=== PATIENT | male | born 1945 | race Two or more races ===

== ENCOUNTER 2016-10-22 19:35 | Inpatient (IN) | payer MEDICARE, MEDICAID ==
[~2016-10-22] VITALS: Ht 182.9 cm; Wt 71.2 kg
--- NOTE | 2016-10-22 19:37 | NUR ---
70 YO MALE BB RA FROM [facility] FOR SOB. PT IS CONFUSED AT THIS TIME, SKIN WARM AND DRY. RR EVEN AND UNLABORED. PT SPO2 IS 94 ON ROOM AIR. PT GOWNED, PLACE DON STOGY MAKER. AWAITING ORDERS FROM PROVIDER Addendum: 10/22/16 at 2203 by STEF REPORT GIVEN TO ALESSANDRA NAQVI FOR DAGO
--- NOTE | 2016-10-22 19:58 | NUR ---
MANAGING BROKER AT BED SIDE FOR BLOOD DRAW
[2016-10-22] MEDS ORDERED: ACETAMINOPHEN 650 MG/SUPP.RECT RC ONE ×2 (20:00→20:25)
--- NOTE | 2016-10-22 20:00 | NUR ---
RT AT BED SIDE FOR ABG
--- NOTE | 2016-10-22 20:00 | NUR ---
RADIOLOGY TEAM AT BED SIDE FOR X RAY
[2016-10-22 20:05] LABS: BASOPHILS # (AUTO) 0.3 /CMM (0.0-0.2); BASOPHILS % (AUTO) 1.9 % (0.0-2.0); EOSINOPHILS % (AUTO) 0.1 % (0.0-6.0); HEMATOCRIT 30 % (39-51); LYMPHOCYTES # (AUTO) 1.4 /CMM (0.8-4.8); LYMPHOCYTES % (AUTO) 8.9 % (20.0-44.0); MEAN CORPUSCULAR HEMOGLOBIN 31 PG (26.0-33.0); MEAN CORPUSCULAR HGB CONC 33 g/dl (31.0-36.0); MEAN CORPUSCULAR VOLUME 94 fL (80-96); MONOCYTES # (AUTO) 1.4 /CMM (0.1-1.30); MONOCYTES % (AUTO) 8.8 % (2.0-12.0); NEUTROPHILS # (AUTO) 12.5 /CMM (1.8-8.9); NEUTROPHILS % (AUTO) 80.3 % (43.0-81.0); PLATELET COUNT (AUTO) 369 /CMM (150-450); RDW COEFFICIENT OF VARIATION 16.7 (11.5-15.0); WHITE BLOOD COUNT (AUTO) 15.6 K/uL (4.3-11.0)
[2016-10-22 20:12] LABS: ABG BASE EXCESS 0.4 mmol/L; ABG OXYGEN SATURATION 91.3 % (92.0-98.5); ABG PCO2 29.8 mmHg (35.0-45.0); ABG PH 7.506 (7.350-7.450); ABG PO2 64.9 mmHg (75.0-100.0); AaDO2 49.1 mmHg; COHb 1.7 % (0.5-1.5); MetHb 1.1 % (0.0-1.5); O2Hb 88.7 % (94.0-97.0); SITE, ABG Left Radial; VENT MODE, BG ROOM AIR
[2016-10-22 20:16] LABS: CALCIUM, SERUM 8.6 mg/dL (8.5-10.1); CARBON DIOXIDE 27 mmol/L (21-32); CHLORIDE 102 mmol/L (98-107); CREATININE 1.5 mg/dL (0.6-1.3); GLUCOSE 124 mg/dL (74-106); POTASSIUM 4.4 mmol/L (3.5-5.1); PROTHROMBIN TIME 10.4 SECS (9.5-12.7); SODIUM SERUM 136 mmol/L (136-145); UREA NITROGEN, BLOOD 26 mg/dL (7-18)
[2016-10-22 20:26] LABS: ALANINE AMINOTRANSFERASE 11 U/L (12-78); ALBUMIN 3.5 g/dL (3.4-5.0); ALKALINE PHOSPHATASE 68 U/L (46-116); ASPARTATE AMINOTRANSFERASE 13 U/L (15-37); BILIRUBIN,DIRECT 0.1 mg/dL (0.0-0.2); BILIRUBIN,TOTAL 0.6 mg/dL (0.2-1.0); TOTAL PROTEIN, SERUM 7.7 g/dL (6.4-8.2)
[2016-10-22 20:28] LABS: TROPONIN I < 0.017 ng/mL (0.00-0.056)
[2016-10-22 20:41] LABS: BAND % (MANUAL) 12 % (0.0-5.0); LYMPHOCYTES % (MANUAL) 13 % (16-48); MONOCYTES % (MANUAL) 10 % (0-11.0); NEUTROPHILS % (MANUAL) 65 (42-76)
[2016-10-22] MEDS ORDERED: IV NS 0.9% 1,000 ML ONE (20:50)
[2016-10-22] MEDS ORDERED: IV SET PRIMARY PUMP SET 1 EA INFUS.SET MC ONE ×2 (20:50→20:59)
--- NOTE | 2016-10-22 20:53 | NUR ---
CALLED DR. MTZ. LEFT MESSAGE ON VOICEMAIL
[2016-10-22] MEDS ORDERED: VANCOMYCIN 1 GM in IV D5W 250 ML IV ONE (21:00)
[2016-10-22] MEDS ORDERED: IV NS 0.9% 1,000 ML BAG IV ONE (21:00)
[2016-10-22] MEDS ORDERED: CEFEPIME 1 GM in IV D5W 50 ML IV ONE (21:00)
--- NOTE | 2016-10-22 21:01 | NUR ---
ATTEMPTED TO DO PERKINS CATH ON PT, UNABLE TO CATH DUE TO RESISTANCE. NOTIFIED
[2016-10-22] MEDS ORDERED: LORA1TAB82 PO (21:16)
[2016-10-22] MEDS ORDERED: SACC250C6 PO (21:16)
[2016-10-22] MEDS ORDERED: DIVA125C PO ×2 (21:16)
[2016-10-22] MEDS ORDERED: RISP1TAB7 PO (21:16)
[2016-10-22] MEDS ORDERED: MULT-213 PO (21:16)
[2016-10-22] MEDS ORDERED: OMEP20CA10 PO (21:16)
[2016-10-22] MEDS ORDERED: METO25TA6 PO (21:16)
[2016-10-22] MEDS ORDERED: GABA-534 PO (21:16)
[2016-10-22] MEDS ORDERED: RISP1TAB27 PO (21:16)
[2016-10-22] MEDS ORDERED: ASCO500C16 PO (21:16)
[2016-10-22] MEDS ORDERED: CRAN405C PO (21:16)
[2016-10-22] MEDS ORDERED: BISA10SU8 RC (21:16)
[2016-10-22] MEDS ORDERED: TAMS-12 PO (21:16)
[2016-10-22] MEDS ORDERED: FLUT16SP BNOSTRILS (21:16)
[2016-10-22] MEDS ORDERED: FINA5TAB11 PO (21:16)
[2016-10-22] MEDS ORDERED: MAGN400O4 PO (21:16)
[2016-10-22] MEDS ORDERED: FOLI1TAB16 PO (21:16)
[2016-10-22] MEDS ORDERED: ACET-868 PO (21:16)
[2016-10-22] MEDS ORDERED: DOCU-170 PO (21:16)
[2016-10-22] MEDS ORDERED: ASPI81TA2 PO (21:16)
--- NOTE | 2016-10-22 21:47 | NUR ---
REPORT GIVEN TO TELE NURSE FOR DAGO
--- NOTE | 2016-10-22 22:02 | NUR ---
registered nurse cardiac telemetry notes: received pt from emergency department. pt is on 4lpm via nc. pt is a/o x 1 and is confused. call light within pt's reach. bed kept in locked, lowest position, and side rails x 2 up. on tele and is sinus rhythm. no signs or symptoms of distress noted at this time. will continue to monitor pt.
[2016-10-22] MEDS ORDERED: AZITHROMYCIN 500 MG in IV D5W 250 ML IV SCH (23:30)
[2016-10-22] MEDS ORDERED: CEFTRIAXONE 1 G in IV D5W 50 ML IV SCH (23:30)
[2016-10-22] MEDS ORDERED: AZITHROMYCIN 500 MG VIAL ONE (23:41)
[2016-10-23] MEDS ORDERED: risperiDONE 1 MG TABLET PO PRN
[2016-10-23] MEDS ORDERED: IPRATROPIUM NEB FS 0.5 MG/2.5 ML AMPUL.NEB NEB PRN
[2016-10-23] MEDS ORDERED: IV D5W 250 ML IV ONE (00:25)
[2016-10-23] MEDS ORDERED: IV D5W 50 ML IV ONE (00:29)
[2016-10-23] MEDS ORDERED: CEFTRIAXONE 1 G VIAL ONE (00:29)
[2016-10-23] MEDS ORDERED: NA PHOS,M-B/NA PHOS,DI-BA 1 EA ENEMA RC PRN (00:30)
[2016-10-23] MEDS ORDERED: MAGNESIUM HYDROXIDE 30 ML UDC PO PRN (00:30)
[2016-10-23] MEDS ORDERED: BISACODYL (5 MG) 5 MG TABLET.DR PO PRN (00:30)
[2016-10-23] MEDS ORDERED: ACETAMINOPHEN 325 MG TABLET PO PRN (00:30)
[2016-10-23] MEDS ORDERED: IV NS 0.9% 250 ML IV ONE (00:33)
[2016-10-23] MEDS ORDERED: IV SET PRIMARY PUMP SET 1 EA INFUS.SET MC ONE (00:34)
[2016-10-23] MEDS ORDERED: SECONDARY IV SET 1 EA INFUS.SET MC ONE ×2 (00:34→01:42)
[2016-10-23] MEDS ORDERED: ENOXAPARIN SODIUM 40 MG/0.4 ML DISP.SYRIN SQ ONE (01:07)
--- NOTE | 2016-10-23 04:00 | NUR ---
outbound telemarketing representative notes: paged dr. may regarding pt having uncontrolled a-fib 150-180s. got order for digoxin 0.25mg iv for initial dose and 2nd dose of digoxin 0.25mg iv after 4 hrs. also got order for ns iv at 60 ml/hr. if patient's hr does not resolve, transfer to [facility] per dr. may. will continue to monitor pt.
[2016-10-23] MEDS ORDERED: IPRATROPIUM NEB FS 0.5 MG/2.5 ML AMPUL.NEB ONE (04:12)
[2016-10-23] MEDS ORDERED: ALBUTEROL HALF STRENGTH 1.25 MG/3 ML VIAL.NEB ONE (04:13)
[2016-10-23] MEDS ORDERED: ALBUTEROL HALF STRENGTH 1.25 MG/3 ML VIAL.NEB NEB PRN (04:30)
[2016-10-23] MEDS ORDERED: DIGOXIN INJ 0.5 MG/2 ML AMPUL ONE (04:54)
--- NOTE | 2016-10-23 04:54 | NUR ---
television maintenance man notes: charge nurse aware of uncontrolled a-fib. administered digoxin 0.25mg iv and while it was being administered, tech recorded. will continue to monitor pt.
[2016-10-23] MEDS ORDERED: POTASSIUM CHLORIDE 20 MEQ TAB.PRT.SR PO ONE (04:55)
[2016-10-23] MEDS ORDERED: DIGOXIN INJ 0.5 MG/2 ML AMPUL IV ONE ×2 (05:00→09:00)
[2016-10-23] MEDS ORDERED: IV NS 0.9% 1,000 ML ONE (05:10)
[2016-10-23] MEDS: IV NS 0.9% 1,000 ML IV PRN (05:17)
[2016-10-23 07:22] LABS: BASOPHILS % (AUTO) 0.1 % (0.0-2.0); HEMATOCRIT 26 % (39-51); HEMOGLOBIN 8.7 g/dL (13.5-17.5); LYMPHOCYTES # (AUTO) 0.8 /CMM (0.8-4.8); LYMPHOCYTES % (AUTO) 5.3 % (20.0-44.0); MEAN CORPUSCULAR HEMOGLOBIN 32 PG (26.0-33.0); MEAN CORPUSCULAR HGB CONC 34 g/dl (31.0-36.0); MEAN CORPUSCULAR VOLUME 93 fL (80-96); MONOCYTES # (AUTO) 1.5 /CMM (0.1-1.30); MONOCYTES % (AUTO) 9.7 % (2.0-12.0); NEUTROPHILS # (AUTO) 12.9 /CMM (1.8-8.9); NEUTROPHILS % (AUTO) 84.9 % (43.0-81.0); PLATELET COUNT (AUTO) 280 /CMM (150-450); RDW COEFFICIENT OF VARIATION 18.1 (11.5-15.0); RED BLOOD CELL COUNT(AUTO) 2.76 MIL/uL (4.5-6.0); WHITE BLOOD COUNT (AUTO) 15.2 K/uL (4.3-11.0)
--- NOTE | 2016-10-23 07:25 | NUR ---
telephone assembler closing notes: tele reading still with uncontrolled a fib in 130-170s. endorsed to am nurse about transferring to [facility] per dr. may if hr does not resolve. pt in 4lpm via nc. pt's fever went down after ice was applied under bilateral underarms and cool well cloth on forehead. was seen by RT for breathing treatment and suctioning via nasal and oral airway. pt is still confused. ivs are patent and intact. fluids are being infused at ns at 60ml/hr. endorsed to am nurse for mo.
[2016-10-23 07:27] LABS: CALCIUM, SERUM 8.1 mg/dL (8.5-10.1); CARBON DIOXIDE 24 mmol/L (21-32); CHLORIDE 105 mmol/L (98-107); CREATININE 1.3 mg/dL (0.6-1.3); GLUCOSE 121 mg/dL (74-106); POTASSIUM 4.1 mmol/L (3.5-5.1); SODIUM SERUM 139 mmol/L (136-145); UREA NITROGEN, BLOOD 25 mg/dL (7-18)
[2016-10-23] MEDS ORDERED: ENOXAPARIN SODIUM 40 MG/0.4 ML DISP.SYRIN SQ SCH ×2 (07:35)
[2016-10-23] MEDS: IPRATROPIUM NEB FS 0.5 MG/2.5 ML AMPUL.NEB NEB SCH ×4 (07:47→19:40)
[2016-10-23 08:00] VITALS: BP 106/86
--- NOTE | 2016-10-23 08:00 | NUR ---
MS RN RECEIVED ON BED,SLEEPING, ON MONITOR W/ AFIB UNCONTROLLED AT THE RATE OF 150'S, PATIENT WILL BE GIVEN DIGOXIN IV PER ORDER AND IF NOT RELIEVED, TRANSFER PATIENT TO [facility] PER MD ORDER. REPOSITIONED FOR FOMFORT, COUGHING AT TIMES W/ THICK SECRETION INSIDE.
[2016-10-23] MEDS: GABAPENTIN 300 MG CAPSULE PO SCH ×3 (09:00→17:51)
[2016-10-23] MEDS ORDERED: ASPIRIN 81 MG TAB.CHEW PO SCH (09:00)
--- NOTE | 2016-10-23 09:00 | NUR ---
MS RN MEDS HELD DUE TO PATIENT IS COUGHING AND WILL HAVE A SWALLOW EVAL.
--- NOTE | 2016-10-23 09:30 | NUR ---
MS RN ELLIOTT GONSALES CAME ,WILL DO IT IN AM, PATIENT IS VERY SLEEPY.
--- NOTE | 2016-10-23 11:00 | NUR ---
MS RN PATIENT IS ABOUT TO BE TRANSFERRED TO [facility], BUT DR. MTZ CAME AND DID NOT WANT TO BE TRANSFERRED, PATIENT IS STILL HAVING HR OF 150'S. W/ ORDER TO GIVE CARDIZEM AT 1530 IF HR IS > 120.
[2016-10-23] MEDS: ALBUTEROL HALF STRENGTH 1.25 MG/3 ML VIAL.NEB NEB SCH ×3 (11:05→19:40)
--- NOTE | 2016-10-23 11:10 | NUR ---
MS RN DR. MTZ EVALUATED PT FOR SWALLOWING.PATIENT IS OK TO GIVE FOOD.
[2016-10-23] MEDS: FINASTERIDE (5 MG) 5 MG TABLET PO SCH (12:42)
[2016-10-23] MEDS: DIVALPROEX SODIUM 500 MG TABLET.DR PO SCH (12:43)
[2016-10-23] MEDS: FOLIC ACID 1 MG TABLET PO SCH (12:43)
[2016-10-23] MEDS: METOPROLOL TARTRATE 25 MG TABLET PO SCH ×2 (12:48→22:36)
[2016-10-23] MEDS: TAMSULOSIN 0.4 MG CAP.SR.24H PO SCH ×2 (12:57→22:33)
--- NOTE | 2016-10-23 15:30 | NUR ---
MS RN PATIENT HR - 110 123 - CARDIZEM NOT GIVEN, STANDBY FOR FUTURE USE.
[2016-10-23 16:00] VITALS: BP 107/61
[2016-10-23 16:29] VITALS: BP 99/56
[2016-10-23] MEDS: APIXABAN 5 MG TABLET PO SCH (17:51)
--- NOTE | 2016-10-23 18:29 | NUR ---
MS RN PATIENT REMOVED HIS IV, ALL NEEDS ATTENDED.
[2016-10-23 20:00] VITALS: BP_SYST 124; BP_SYST 98; BP_DIAS 54; BP_DIAS 82
--- NOTE | 2016-10-23 20:00 | NUR ---
TELE NOTES ALERT AND AWAKE. PERIODS OF CONFUSION NOTED. REFUSED OXYGEN AT THIS TIME. TOLERATING ROOM AIR WELL WITH NO S/S OF SOB. EXPLAINED RISK AND BENEFITS. LEFT FOREARM IV ACCESS NOTED, INTACT AND PATENT. CLEAN AND DRY. WILL TURN AND REPOSITION PT. WILL CONT TO MONITOR.
[2016-10-23] MEDS: ATORVASTATIN 40 MG TABLET PO SCH (22:34)
[2016-10-23] MEDS: risperiDONE 1 MG TABLET PO SCH (22:34)
[2016-10-23] MEDS: CEFTRIAXONE 1 G in IV D5W 50 ML IV SCH ×2 (22:46→22:48)
[2016-10-24] VITALS: BP 104/62
--- NOTE | 2016-10-24 | NUR ---
TELE NOTES PT AWAKE . REFUSED OXYGEN AT THIS TIME. EXPLAINED RISK AND BENEFITS. NURSING CARE RENDERED. ALL NEEDS ANTICIPATED. WITH PERIODS OF NON- PRODUCTIVE COUGH NOTED. NO ACUTE RESP. DISTRESS NOTED. WILL CONTINUE TO MONITOR.
[2016-10-24] MEDS: AZITHROMYCIN 500 MG in IV D5W 250 ML IV SCH ×2 (00:02→23:04)
[2016-10-24 04:00] VITALS: BP 101/56
[2016-10-24] MEDS: IV NS 0.9% 1,000 ML IV PRN (06:09)
--- NOTE | 2016-10-24 06:14 | NUR ---
TELE NOTES PATIENT REMAINS STABLE THROUGHOUT THE NIGHT. WILL ENDORSE TO MORNING SHIFT.
--- NOTE | 2016-10-24 07:30 | NUR ---
MEDICATION ASSISTANT OPEN NOTES RECEIVED REPORT FROM TIN CAN LABORER NURSE. PATIENT IS IN BED, AOX1 (ONLY TO NAME). NO SIGNS AND SYMPTOMS OF DISTRESS. PATIENT REFUSED OXYGEN. PATIENT IS ON TELE MONITORING A FIB 99 BMP. IV SITE ON THE LEFT FA 22G IS INTACT AND PATENT. WILL CONTINUE TO EVALUATE AND MONITOR PATIENT CONDITION.
[2016-10-24] MEDS: IPRATROPIUM NEB FS 0.5 MG/2.5 ML AMPUL.NEB NEB SCH ×4 (07:35→19:34)
[2016-10-24] MEDS: ALBUTEROL HALF STRENGTH 1.25 MG/3 ML VIAL.NEB NEB SCH ×4 (07:35→19:34)
[2016-10-24 08:00] VITALS: BP 113/59
[2016-10-24] MEDS: DIVALPROEX SODIUM 500 MG TABLET.DR PO SCH (09:00)
[2016-10-24] MEDS: FOLIC ACID 1 MG TABLET PO SCH (09:00)
[2016-10-24] MEDS: FINASTERIDE (5 MG) 5 MG TABLET PO SCH (09:00)
[2016-10-24] MEDS: METOPROLOL TARTRATE 25 MG TABLET PO SCH ×2 (09:00→21:18)
[2016-10-24] MEDS: APIXABAN 5 MG TABLET PO SCH ×2 (09:00→17:10)
[2016-10-24] MEDS: GABAPENTIN 300 MG CAPSULE PO SCH ×3 (09:00→17:10)
--- NOTE | 2016-10-24 09:31 | NUR ---
Patient refused all 9am Meds. Meds wasted
[2016-10-24 12:00] VITALS: BP 93/64
[2016-10-24] MEDS: DIGOXIN INJ 0.5 MG/2 ML AMPUL IV SCH (12:56)
[2016-10-24] MEDS ORDERED: DIGOXIN 0.125 MG TABLET PO SCH (13:00)
--- NOTE | 2016-10-24 13:05 | NUR ---
RN Notes Digoxin Digoxin administered. Tele Rhythm strip was taken before, during and after administration. will continue to monitor heart rate
--- NOTE | 2016-10-24 13:45 | NUR ---
RN NOTES / eMAR CLARIFICATION PERLA CHARGE NURSE MADE AWARE OF PATIENT, eMAR TO CLARIFY CARDIZEM ORDER. DR HUERTA MADE AWARE AND ORDER WAS CANCELED.
--- NOTE | 2016-10-24 14:15 | NUR ---
Dr Red made aware of patient heart rate. new orders received and entered by Jass Elmore
[2016-10-24] MEDS ORDERED: DILTIAZEM HCL 25 MG IV IV PRN (15:00)
--- NOTE | 2016-10-24 15:20 | NUR ---
RN NOTE / HEART RATE PATIENT HEART RATE IS BELOW 120. CARDIZEM PRN WAS NOT ADMINISTERED
[2016-10-24] MEDS ORDERED: DILTIAZEM HCL 25 MG IV IV ONE (15:30)
[2016-10-24 16:00] VITALS: BP 115/60
--- NOTE | 2016-10-24 16:00 | NUR ---
HEART RATE IS ABOVE 120, CARDIZEM WILL BE ADMINISTER Addendum: 10/24/16 at 1755 by JOHNNA BARRIENTOS RN HEART RATE IS LOWER THAN 120 SINCE CARDIZEM WAS GIVEN
[2016-10-24] MEDS: LACTOBACILLUS RHAMNOSUS GG 1 EACH CAP.SPRINK PO SCH (17:10)
--- NOTE | 2016-10-24 18:36 | NUR ---
IN SCHOOL SUSPENSION COORDINATOR NOTES PATIENT IS IN BED, AWAKE, ALERT AND ORIENTED TO NAME ONLY. PATIENT IS CONFUSED. PATIENT IN ON TELE MONITOR UNCONTROLLED A. FIB 110 - 115 BPM. ALL NEEDS ANTICIPATED. NURSING CARE RENDERED. KEPT CLEAN AND DRY. WILL ENDORSE TO THE FOUNDRY SUPERINTENDANT NURSE.
[2016-10-24 20:00] VITALS: BP 116/82
[2016-10-24] MEDS: CEFTRIAXONE 1 G in IV D5W 50 ML IV SCH (22:19)
[2016-10-24] MEDS: ATORVASTATIN 40 MG TABLET PO SCH (22:19)
[2016-10-24] MEDS: TAMSULOSIN 0.4 MG CAP.SR.24H PO SCH (22:20)
[2016-10-24] MEDS: risperiDONE 1 MG TABLET PO SCH (22:20)
[2016-10-25] VITALS: BP 123/72
[2016-10-25] MEDS: IV NS 0.9% 1,000 ML IV PRN ×2 (01:39→16:43)
[2016-10-25 04:00] VITALS: BP 124/69
--- NOTE | 2016-10-25 06:38 | NUR ---
ICE CREAM DISPENSER NOTES AWAKE & RESPONSIVE. STILL CONFUSED. NOT IN ANY DISTRESS. NO SOB NOTED. NO S/SX OF PAIN OR DISCOMFORT AT THIS TIME. ON TELE AFIB @ 100S WITH IVF INFUSING WELL. AM CARE DONE. MONITORED ACCORDINGLY. CALL LIGHT WITHIN REACH. BED IN LOWEST POSITION. SR UP X 3 WITH BED ALARM ON FOR SAFETY.
[2016-10-25 06:43] LABS: BASOPHILS % (AUTO) 0.2 % (0.0-2.0); EOSINOPHILS # (AUTO) 0.1 /CMM (0.0-0.7); EOSINOPHILS % (AUTO) 0.7 % (0.0-6.0); HEMATOCRIT 26 % (39-51); HEMOGLOBIN 8.8 g/dL (13.5-17.5); LYMPHOCYTES % (AUTO) 10.3 % (20.0-44.0); MEAN CORPUSCULAR HEMOGLOBIN 32 PG (26.0-33.0); MEAN CORPUSCULAR HGB CONC 34 g/dl (31.0-36.0); MEAN CORPUSCULAR VOLUME 93 fL (80-96); MONOCYTES # (AUTO) 0.8 /CMM (0.1-1.30); MONOCYTES % (AUTO) 7.9 % (2.0-12.0); NEUTROPHILS # (AUTO) 8.1 /CMM (1.8-8.9); NEUTROPHILS % (AUTO) 80.9 % (43.0-81.0); PLATELET COUNT (AUTO) 305 /CMM (150-450); RDW COEFFICIENT OF VARIATION 17.5 (11.5-15.0); RED BLOOD CELL COUNT(AUTO) 2.79 MIL/uL (4.5-6.0); WHITE BLOOD COUNT (AUTO) 10.1 K/uL (4.3-11.0)
--- NOTE | 2016-10-25 07:06 | NUR ---
RN OPEN NOTES RECEIVED REPORT FROM LABOR RELATIONS TEACHER NURSE. PATIENT IS IN BED WITH HIS EYES CLOSED, EASILY AWAKEN TO CALLING HIS NAME AND TOUCH. PATIENT IS ON TELE MONITOR A. FIB 104. BED IN LOW POSITION, LOCKED AND 2 SIDE RAILS ARE UP. IV SITE IS INTACT AND PATENT, CURRENTLY RUNNING 60 ML/HR. PATIENT REFUSED OXYGEN NASAL CANNULA. WILL CONTINUE TO MONITOR AND ASSESS PATIENT DURING MY SHIFT.
[2016-10-25 07:09] LABS: CALCIUM, SERUM 8.1 mg/dL (8.5-10.1); CARBON DIOXIDE 25 mmol/L (21-32); CHLORIDE 104 mmol/L (98-107); GLUCOSE 106 mg/dL (74-106); POTASSIUM 4.3 mmol/L (3.5-5.1); SODIUM SERUM 138 mmol/L (136-145); UREA NITROGEN, BLOOD 20 mg/dL (7-18)
[2016-10-25] MEDS: ALBUTEROL HALF STRENGTH 1.25 MG/3 ML VIAL.NEB NEB SCH ×4 (07:58→19:19)
[2016-10-25] MEDS: IPRATROPIUM NEB FS 0.5 MG/2.5 ML AMPUL.NEB NEB SCH ×4 (07:58→19:19)
[2016-10-25 08:00] VITALS: BP 106/74
[2016-10-25] MEDS: APIXABAN 5 MG TABLET PO SCH ×2 (08:13→17:19)
[2016-10-25] MEDS: FINASTERIDE (5 MG) 5 MG TABLET PO SCH (08:14)
[2016-10-25] MEDS: LACTOBACILLUS RHAMNOSUS GG 1 EACH CAP.SPRINK PO SCH ×2 (08:14→17:20)
[2016-10-25] MEDS: GABAPENTIN 300 MG CAPSULE PO SCH ×2 (08:14→13:06)
[2016-10-25] MEDS: FOLIC ACID 1 MG TABLET PO SCH (08:14)
[2016-10-25] MEDS: METOPROLOL TARTRATE 25 MG TABLET PO SCH ×2 (08:14→21:26)
[2016-10-25] MEDS: DIVALPROEX SODIUM 500 MG TABLET.DR PO SCH (08:15)
--- NOTE | 2016-10-25 08:15 | NUR ---
DEPAKOTE CAN'T BR CRUSHED. WILL FOLLOW UP WITH MD TO CHANGE MEDS PATIENT CAN'T SWALLOW PILLS
[2016-10-25 12:00] VITALS: BP 107/66
--- NOTE | 2016-10-25 12:59 | NUR ---
LEFT A MESSAGE AT DR MTZ OFFICE TO CALL ME BACK REGARDIN. If he still want to continue with Digoxin administrating 2. The Change Depakote to Depakene as the patient can't swallow Meds and all Meds have to be crushed
--- NOTE | 2016-10-25 13:20 | NUR ---
SPOKE TO DR MTZ ON THE FLOOR. DR MTZ REQUESTED TO STOP DEPAKOTE AND NEURONTIN. TO GIVE THE LAST DOSE OF DIGOXIN IV AND SWITCH IT TO PO DAILY, SAME DOSE. WILL CARRY ON ORDERS
[2016-10-25] MEDS: DIGOXIN INJ 0.5 MG/2 ML AMPUL IV SCH (13:37)
--- NOTE | 2016-10-25 13:42 | NUR ---
DIGOXIN WAS GIVEN PER DR MTZ REQUEST. TELE STRIPS WAS PRINTED AND PLACED IN THE CHART BEFORE DURING AND AFTER DIGOXIN
--- NOTE | 2016-10-25 13:45 | NUR ---
PER DR MTZ, LEAVE PATIENT ON TELEMETRY TO KEEP MONITORING PATIENT HEART RHYTHM
[2016-10-25 16:00] VITALS: BP 122/68
--- NOTE | 2016-10-25 19:00 | NUR ---
MS RN INITIAL NOTE PT RECEIVED IN BED, A/O X 1, NO S/S OF RESPIRATORY DISTRESS OR SOB. SAFE ENVIRONMENT PROVIDED FREE OF CLUTTERS. IV SITE INTACT WITH NO S/S OF INFILTRATION NOTED.BED IN LOCKED, LOW POSITION. CALL LIGHT WITHIN EASY REACH. WILL CONTINUE TO MONITOR.
--- NOTE | 2016-10-25 19:27 | NUR ---
LEATHER COVERER NOTES GAVE REPORT TO SIEBEL CRM DEVELOPER NURSE. PATIENT IS IN BED, AWAKE, ALERT AND ORIENTED TO NAME ONLY. PATIENT IS CONFUSED. PATIENT IN ON TELE MONITOR UNCONTROLLED A. FIB 110 - 115 BPM. ALL NEEDS ANTICIPATED. NURSING CARE RENDERED. KEPT CLEAN AND DRY.
[2016-10-25 20:00] VITALS: BP 117/77
[2016-10-25] MEDS: risperiDONE 1 MG TABLET PO SCH (21:25)
[2016-10-25] MEDS: TAMSULOSIN 0.4 MG CAP.SR.24H PO SCH (21:25)
[2016-10-25] MEDS: CEFTRIAXONE 1 G in IV D5W 50 ML IV SCH (21:25)
[2016-10-25] MEDS: ATORVASTATIN 40 MG TABLET PO SCH (21:26)
[2016-10-25] MEDS: AZITHROMYCIN 500 MG in IV D5W 250 ML IV SCH (23:59)
--- NOTE | 2016-10-26 06:35 | NUR ---
MS RN CLOSING NOTES PATIENT COMFORTABLY ASLEEP AND EASILY AWAKEN, HEAD OF BED ELEVATED FOR BETTER LUNG EXPANSION IV HYDRATION ONGOING NS AT 60 CC, IV SITE NO S/S OF INFILTRATED, ON ATB WITH NO A/R NOTED. PATIENT DENIES PAIN AT THIS TIME. RESPIRATIONS EVEN AND UNLABORED. NO S/S OF ACUTE DISTRESS, NO SOB, NO COUGH, SKIN WARM AND DRY TO TOUCH, AFEBRILE, ALL NURSING CARE NEEDS PROVIDED AND RENDERED, NEEDS ATTENDED AND ANTICIPATED, KEPT CLEAN AND DRY AND COMFORTABLE, BLADDER NOT DISTENDED, GOOD SKIN ARE PROVIDED. NO C/O OF CONSTIPATION. ALL DUE MEDS WAS GIVEN TOLERATED. FREQUENT VISUAL CHECK DONE FOR SAFETY EVERY 2 HOURS. REPOSITIONED EVERY 2 HOURS FOR COMFORT AND SKIN MGT. SAFE HAZARD FREE ENVIRONMENT PROVIDED. CALL LIGHT WITHIN EASY TO REACH, ON LOW BED AT ALL TIMES TO ENSURE SAFETY, WILL ENDORSE TO THE NEXT SHIFT CONTINUE PLAN OF CARE.
--- NOTE | 2016-10-26 07:21 | NUR ---
RN OPEN NOTES RECEIVED REPORT FROM SENIOR INTEGRATION DEVELOPER NURSE. PATIENT IS IN BED, SLEEPING BUT EASILY AROUSE TO NAME AND TOUCH. NO SIGNS AND SYMPTOMS OF DISTRESS. BED IN LOW POSITION, LOCKED AND 2 SIDE RAILS ARE UP. WILL CONTINUE TO MONITOR AND ASSESS PATIENT CONDITION.
[2016-10-26] MEDS: ALBUTEROL HALF STRENGTH 1.25 MG/3 ML VIAL.NEB NEB SCH ×2 (07:35→11:30)
[2016-10-26] MEDS: IPRATROPIUM NEB FS 0.5 MG/2.5 ML AMPUL.NEB NEB SCH ×4 (07:38→19:18)
--- NOTE | 2016-10-26 07:39 | NUR ---
RT NOTE: ALBUTEROL HELD DUE TO ADVERSE REACTIONS REPORTED BY NURSE. WILL CONTINUE TO MONITOR.
[2016-10-26 08:00] VITALS: BP 116/66
[2016-10-26] MEDS: METOPROLOL TARTRATE 25 MG TABLET PO SCH ×2 (08:33→21:01)
[2016-10-26] MEDS: FINASTERIDE (5 MG) 5 MG TABLET PO SCH (08:33)
[2016-10-26] MEDS: FOLIC ACID 1 MG TABLET PO SCH (08:33)
[2016-10-26] MEDS: LACTOBACILLUS RHAMNOSUS GG 1 EACH CAP.SPRINK PO SCH ×2 (08:33→16:44)
[2016-10-26] MEDS: APIXABAN 5 MG TABLET PO SCH ×2 (08:33→16:44)
[2016-10-26 12:00] VITALS: BP 112/59
[2016-10-26] MEDS: DIGOXIN 0.125 MG TABLET PO SCH (12:54)
--- NOTE | 2016-10-26 13:30 | NUR ---
DR MTZ AT BEDSIDE. WILL KEEP PATIENT ONE MORE DAY FOR EVALUATION AND CONTROLLING HEART RATE
[2016-10-26 16:00] VITALS: BP 121/64
[2016-10-26] MEDS ORDERED: LACTOBACILLUS RHAMNOSUS GG 1 EACH CAP.SPRINK PO SCH (17:00)
--- NOTE | 2016-10-26 17:59 | NUR ---
PLEASE KEEP PATIENT ON TELE PER DR MTZ.
--- NOTE | 2016-10-26 18:36 | NUR ---
SUPERVISOR PLATE FORMING CLOSING NOTES Patient is confused, alert and oriented to name only. Patient kept clean and dry. All needs anticipated. Patient received all medications as schedule. Heart Rate was between 110 - 145 today, Dr Mtz made aware. Dr Mtz wants to keep the patient another night for a better heart rate control by adjusting medication. Possible DC's in tomorrow AM. PLEASE KEEP PATIENT ON TELE PER DR MTZ. Patient is in bed. bed in low position, locked and two siderails are up. No signs and symptoms of distress. Denied pain. Will endorse to hourly shift manager nurse to continue of care.
--- NOTE | 2016-10-26 19:00 | NUR ---
MS RN INITIAL NOTE PT RECEIVED IN BED, A/O X 1, NO S/S OF DISTRESS NOTED. NO S/S OF RESPIRATORY DISTRESS OR SOB. SAFE ENVIRONMENT PROVIDED FREE OF CLUTTERS. IV SITE INTACT WITH NO S/S OF INFILTRATION NOTED. BED IN LOCKED, LOW POSITION. CALL LIGHT WITHIN EASY REACH. WILL CONTINUE TO MONITOR.
[2016-10-26] MEDS ORDERED: SECONDARY IV SET 1 EA INFUS.SET MC ONE (19:57)
[2016-10-26 20:00] VITALS: BP 123/62
[2016-10-26] MEDS: TAMSULOSIN 0.4 MG CAP.SR.24H PO SCH (21:00)
[2016-10-26] MEDS: risperiDONE 1 MG TABLET PO SCH (21:00)
[2016-10-26] MEDS: ATORVASTATIN 40 MG TABLET PO SCH (21:00)
[2016-10-26] MEDS: CEFTRIAXONE 1 G in IV D5W 50 ML IV SCH (21:01)
[2016-10-26] MEDS: AZITHROMYCIN 500 MG in IV D5W 250 ML IV SCH (22:14)
[2016-10-27] VITALS: BP_SYST 129; BP_SYST 140; BP_DIAS 70; BP_DIAS 74
[2016-10-27 03:51] VITALS: BP 140/70
[2016-10-27] MEDS: IV NS 0.9% 1,000 ML IV PRN (05:20)
--- NOTE | 2016-10-27 06:23 | NUR ---
MS RN CLOSING NOTES PATIENT COMFORTABLY ASLEEP AND EASILY AWAKEN, A/O X 1. HEAD OF BED ELEVATED FOR BETTER LUNG EXPANSION ON 4LPM VIA NC 02 SAT 98%. IV SITE NO S/S OF INFILTRATED, NS RUNNING AT 60 MLS/HR, PATENT AND FLUSHED, ON ATB WITH NO A/R NOTED. PATIENT DENIES PAIN AT THIS TIME. RESPIRATIONS EVEN AND UNLABORED. NO S/S OF ACUTE DISTRESS, NO SOB, NO COUGH, NO CONGESTION, SKIN WARM AND DRY TO TOUCH, AFEBRILE, ALL NURSING CARE NEEDS PROVIDED AND RENDERED, KEPT CLEAN AND DRY AND COMFORTABLE, GOOD SKIN CARE PROVIDED. FREQUENT VISUAL CHECK DONE FOR SAFETY EVERY 2 HOURS. VS STABLE. SAFE HAZARD FREE ENVIRONMENT PROVIDED. CALL LIGHT WITHIN EASY TO REACH, ON LOW BED AT ALL TIMES TO ENSURE SAFETY, WILL ENDORSE TO THE NEXT SHIFT CONTINUE PLAN OF CARE.
[2016-10-27 06:46] VITALS: BP 123/73
--- NOTE | 2016-10-27 07:20 | NUR ---
KEY ACCOUNT COORDINATOR NOTES REPORT RECEIVED AT THE BEDSIDE. PATIENT IS SLEEPING. NO SOB OR DISTRESS NOTED AT THIS TIME. PATIENT DOES NOT APPEAR TO BE IN PAIN, NO FACIAL GRIMACE NOTED. HEART RATE IS AFIB 100-105. BED IN A LOW POSITION, CALL LIGHT WITHIN PATIENT REACH. WILL CONTINUE TO MONITOR.
[2016-10-27] MEDS: IPRATROPIUM NEB FS 0.5 MG/2.5 ML AMPUL.NEB NEB SCH ×4 (07:58→15:20)
[2016-10-27 08:00] VITALS: BP 123/73
[2016-10-27] MEDS: METOPROLOL TARTRATE 25 MG TABLET PO SCH (08:47)
[2016-10-27] MEDS: APIXABAN 5 MG TABLET PO SCH (08:47)
[2016-10-27] MEDS: FOLIC ACID 1 MG TABLET PO SCH (08:47)
[2016-10-27] MEDS: LACTOBACILLUS RHAMNOSUS GG 1 EACH CAP.SPRINK PO SCH (08:48)
[2016-10-27] MEDS: FINASTERIDE (5 MG) 5 MG TABLET PO SCH (08:48)
[2016-10-27 12:00] VITALS: BP 122/77
[2016-10-27] MEDS: DIGOXIN 0.125 MG TABLET PO SCH (12:15)
[2016-10-27] MEDS ORDERED: Z GUARD REMEDY 4 OZ OINT TP PRN (13:30)
--- NOTE | 2016-10-27 15:52 | NUR ---
VENDING MACHINE COLLECTOR NOTE PATIENT IS VERY CONFUSED AND UNABLE TO TAKE INSTRUCTIONS. DISCHARGE PHOTOS WERE DONE, BUT WERE DIFFICULT PATIENT BECAME COMBATIVE. NO OPEN WOUNDS AT THIS TIME. NO SOB OR DISTRESS NOTED AT THIS TIME. PATIENT DOES NOT APPEAR TO BE IN PAIN, NO FACIAL GRIMACE NOTED. BELONGINGS ACCOUNTED FOR AND PAPERWORK SIGNED BY TWO RNS. PATIENT LEFT IN STABLE CONDITION, TO [facility]. CALLED AND INFORMED OF PATIENT DEPARTURE.
[2016-10-27 16:00] VITALS: BP 94/52
== END 2016-10-27 18:15 | DRG 871 ==
LOC: ER 19:37 → TELE 21:35 → MED 10-25 08:40 → TELE 10-26 18:32
PROVIDERS: ADMIT Internal Medicine; ATTEND Internal Medicine
DX: A41.9 Sepsis, unspecified organism (principal); J69.0 Pneumonitis due to inhalation of food and vomit; G93.40 Encephalopathy, unspecified; J96.90 Respiratory failure, unspecified, unspecified whether with hypoxia or hypercapnia; N17.9 Acute kidney failure, unspecified; F02.81 Dementia in other diseases classified elsewhere, unspecified severity, with behavioral disturbance; I48.91 Unspecified atrial fibrillation; I12.9 Hypertensive chronic kidney disease with stage 1 through stage 4 chronic kidney disease, or unspecified chronic kidney disease; N18.9 Chronic kidney disease, unspecified; N40.0 Benign prostatic hyperplasia without lower urinary tract symptoms; D63.8 Anemia in other chronic diseases classified elsewhere; G30.9 Alzheimer's disease, unspecified; I25.10 Atherosclerotic heart disease of native coronary artery without angina pectoris; K21.9 Gastro-esophageal reflux disease without esophagitis; R79.89 Other specified abnormal findings of blood chemistry
CPT/HCPCS: 36415; 36600; 71010-TC; 80048-TC; 80076-TC; 80162-TC; 83605-TC; 84484-TC; 85025-TC; 85730-TC; 87040-TC; 87081-TC; 92521; 94799-TC; A4606; J0456; J0692; J0696; J1160; J1650; J3370; J3490; J7030; J7050; J7060; Z7610

== ENCOUNTER 2017-04-23 22:06 | Emergency (ER) | payer MEDICARE, MEDICAID ==
[~2017-04-23] VITALS: Ht 188 cm; Wt 71.7 kg
[~2017-04-23 22:06] MED LIST: ACET-868 PO; ASCO500C16 PO; ASPI81TA2 PO; BISA10SU8 RC; CRAN405C PO; DIVA125C PO; DOCU-170 PO; FINA5TAB11 PO; FLUT16SP BNOSTRILS; FOLI1TAB16 PO; GABA-534 PO; LORA1TAB82 PO; MAGN400O4 PO; METO25TA6 PO; MULT-213 PO; OMEP20CA10 PO; RISP1TAB27 PO; RISP1TAB7 PO; SACC250C6 PO; TAMS-12 PO
[2017-04-23] MEDS ORDERED: DIATR MEGLU/DIATRIZOATE SODIUM 30 ML BOTTLE (GASTROGRAPHIN) ONE (22:28)
--- NOTE | 2017-04-23 23:07 | NUR ---
BENJAMÍN CALLED ([facility]BULNZ). ETA 10 MIN
[2017-04-23 23:14] VITALS: BP 115/74
--- NOTE | 2017-04-23 23:15 | NUR ---
TRANSPORT AT BEDSIDE REPORT GIVEN TO EMT TRANSPORT.
== END 2017-04-23 23:15 | disposition home or self-care (01) ==
LOC: ER 22:07
DX: Z43.1 Encounter for attention to gastrostomy (principal); F03.90 Unspecified dementia, unspecified severity, without behavioral disturbance, psychotic disturbance, mood disturbance, and anxiety; K21.9 Gastro-esophageal reflux disease without esophagitis; I12.9 Hypertensive chronic kidney disease with stage 1 through stage 4 chronic kidney disease, or unspecified chronic kidney disease; N18.9 Chronic kidney disease, unspecified; I48.91 Unspecified atrial fibrillation; D64.9 Anemia, unspecified; Z79.82 Long term (current) use of aspirin
CPT/HCPCS: 43760; 74000; 99284; A4606; A6402; Q9963; Z7610

== ENCOUNTER 2017-04-25 07:14 | Emergency (ER) | payer MEDICARE, MEDICAID ==
[~2017-04-25] VITALS: Ht 177.8 cm; Wt 70.8 kg
--- NOTE | 2017-04-25 07:27 | NUR ---
GUILLERMO FROM [facility] FOR GT REPLACEMENT, CURRENT GT NOTED WITH DEFLATED BALOON. NO SIGNS OF INFCETION, NO BLEEDING NOTED. PATIENT IN NO DISTRESS,. VSS
--- NOTE | 2017-04-25 07:28 | NUR ---
MD ONEILL REPLACED GT WITH F20/6.
[2017-04-25] MEDS ORDERED: IPRATROPIUM NEB FS 0.5 MG/2.5 ML AMPUL.NEB NEB ONE (07:30)
[2017-04-25] MEDS ORDERED: ALBUTEROL FS 2.5 MG/3 ML VIAL.NEB NEB ONE (07:30)
[2017-04-25] MEDS ORDERED: DIATR MEGLU/DIATRIZOATE SODIUM 30 ML BOTTLE (GASTROGRAPHIN) ONE (07:40)
[2017-04-25] MEDS ORDERED: IPRATROPIUM NEB FS 0.5 MG/2.5 ML AMPUL.NEB ONE (07:48)
[2017-04-25] MEDS ORDERED: ALBUTEROL FS 2.5 MG/3 ML VIAL.NEB ONE (07:48)
--- NOTE | 2017-04-25 07:51 | NUR ---
CIGARETTE MACHINE FILLER AT BS
[2017-04-25 08:02] LABS: CALCIUM, SERUM 8.2 mg/dL (8.5-10.1); CARBON DIOXIDE 31 mmol/L (21-32); CHLORIDE 104 mmol/L (98-107); CREATININE 1.1 mg/dL (0.6-1.3); GLUCOSE 99 mg/dL (74-106); POTASSIUM 4.5 mmol/L (3.5-5.1); SODIUM SERUM 140 mmol/L (136-145); UREA NITROGEN, BLOOD 30 mg/dL (7-18)
[2017-04-25 08:10] LABS: BASOPHILS # (AUTO) 0.1 /CMM (0.0-0.2); BASOPHILS % (AUTO) 0.6 % (0.0-2.0); EOSINOPHILS # (AUTO) 0.1 /CMM (0.0-0.7); EOSINOPHILS % (AUTO) 0.7 % (0.0-6.0); HEMATOCRIT 30 % (39-51); HEMOGLOBIN 9.8 g/dL (13.5-17.5); LYMPHOCYTES # (AUTO) 1.5 /CMM (0.8-4.8); LYMPHOCYTES % (AUTO) 15.5 % (20.0-44.0); MEAN CORPUSCULAR HEMOGLOBIN 31 PG (26.0-33.0); MEAN CORPUSCULAR HGB CONC 33 g/dl (31.0-36.0); MEAN CORPUSCULAR VOLUME 94 fL (80-96); MONOCYTES # (AUTO) 1.2 /CMM (0.1-1.30); MONOCYTES % (AUTO) 12.5 % (2.0-12.0); NEUTROPHILS # (AUTO) 6.8 /CMM (1.8-8.9); NEUTROPHILS % (AUTO) 70.7 % (43.0-81.0); PLATELET COUNT (AUTO) 204 /CMM (150-450); RDW COEFFICIENT OF VARIATION 20.9 (11.5-15.0); RED BLOOD CELL COUNT(AUTO) 3.18 MIL/uL (4.5-6.0); TROPONIN I < 0.017 ng/mL (0.00-0.056); WHITE BLOOD COUNT (AUTO) 9.7 K/uL (4.3-11.0)
[2017-04-25 08:15] LABS: ALANINE AMINOTRANSFERASE 32 U/L (12-78); ALBUMIN 2.9 g/dL (3.4-5.0); ALKALINE PHOSPHATASE 78 U/L (46-116); ASPARTATE AMINOTRANSFERASE 15 U/L (15-37); B-TYPE NATRIURETIC PEPTIDE 176 PG/ML (0-125); BILIRUBIN,DIRECT 0.1 mg/dL (0.0-0.2); BILIRUBIN,TOTAL 0.4 mg/dL (0.2-1.0); TOTAL PROTEIN, SERUM 6.7 g/dL (6.4-8.2)
--- NOTE | 2017-04-25 08:20 | NUR ---
PAGED JIM FOR TRANSPORT, ETA 16 MIN
[2017-04-25 08:25] VITALS: BP 117/65
--- NOTE | 2017-04-25 08:56 | NUR ---
PT WAS PCIKED UP BY ZOE FERNANDEZ
--- NOTE | 2017-04-26 14:31 | NUR ---
RESULT HANDED TO DR ONEILL
== END 2017-04-25 08:26 | disposition home or self-care (01) ==
LOC: ER 07:16
DX: K94.23 Gastrostomy malfunction (principal); R05 Cough; F03.90 Unspecified dementia, unspecified severity, without behavioral disturbance, psychotic disturbance, mood disturbance, and anxiety; K21.9 Gastro-esophageal reflux disease without esophagitis; I12.9 Hypertensive chronic kidney disease with stage 1 through stage 4 chronic kidney disease, or unspecified chronic kidney disease; N18.9 Chronic kidney disease, unspecified; I48.91 Unspecified atrial fibrillation; Z79.82 Long term (current) use of aspirin
CPT/HCPCS: 36415; 43752; 71010; 74000; 80048; 80076; 83880; 84484; 85025; 87040 ×2; 87804; 93005; 94640; 99285; A4606; Q9963; 87400; Z7610

== ENCOUNTER 2017-04-26 00:35 | Inpatient (IN) | payer MEDICARE, OTHER ==
[~2017-04-26] VITALS: Ht 182.9 cm; Wt 68.0 kg
[2017-04-26 02:10] LABS: BASOPHILS # (AUTO) 0.1 /CMM (0.0-0.2); BASOPHILS % (AUTO) 0.9 % (0.0-2.0); EOSINOPHILS # (AUTO) 0.1 /CMM (0.0-0.7); EOSINOPHILS % (AUTO) 0.7 % (0.0-6.0); HEMATOCRIT 31 % (39-51); HEMOGLOBIN 10.1 g/dL (13.5-17.5); LYMPHOCYTES # (AUTO) 1.8 /CMM (0.8-4.8); LYMPHOCYTES % (AUTO) 15.3 % (20.0-44.0); MEAN CORPUSCULAR HEMOGLOBIN 31 PG (26.0-33.0); MEAN CORPUSCULAR HGB CONC 33 g/dl (31.0-36.0); MEAN CORPUSCULAR VOLUME 95 fL (80-96); MONOCYTES # (AUTO) 1.1 /CMM (0.1-1.30); MONOCYTES % (AUTO) 9.5 % (2.0-12.0); NEUTROPHILS # (AUTO) 8.4 /CMM (1.8-8.9); NEUTROPHILS % (AUTO) 73.6 % (43.0-81.0); PLATELET COUNT (AUTO) 162 /CMM (150-450); RED BLOOD CELL COUNT(AUTO) 3.26 MIL/uL (4.5-6.0); WHITE BLOOD COUNT (AUTO) 11.5 K/uL (4.3-11.0)
[2017-04-26] MEDS ORDERED: ALBUTEROL FS 2.5 MG/0.5 ML VIAL.NEB ONE (02:13)
[2017-04-26 02:22] LABS: CALCIUM, SERUM 8.4 mg/dL (8.5-10.1); CARBON DIOXIDE 31 mmol/L (21-32); CHLORIDE 106 mmol/L (98-107); CREATININE 1.2 mg/dL (0.6-1.3); GLUCOSE 97 mg/dL (74-106); POTASSIUM 4.5 mmol/L (3.5-5.1); SODIUM SERUM 141 mmol/L (136-145); UREA NITROGEN, BLOOD 31 mg/dL (7-18)
--- NOTE | 2017-04-26 02:25 | NUR ---
CALLED [facility] ([phone]).. SPOKE WITH CHARGE NURSE WHOM STATED HE WILL FAX PT'S MEDICATION LIST TO ER.
[2017-04-26 02:28] LABS: INR 1.05 (0.87-1.13); PROTHROMBIN TIME 10.9 SECS (9.5-12.7)
[2017-04-26] MEDS ORDERED: ALBUTEROL FS 2.5 MG/0.5 ML VIAL.NEB NEB ONE (02:30)
--- NOTE | 2017-04-26 02:55 | NUR ---
ER TALKING TO DR. HERNANDEZ REGARDING PT ADMISSION. WILL CALL FOR REPORT.
--- NOTE | 2017-04-26 02:59 | NUR ---
REPORT CALLED TO M/S DRISS MABRY. WILL TRANSPORT PT TO ROOM 104.
--- NOTE | 2017-04-26 03:15 | NUR ---
RN NOTES RECEIVED PATIENT FROM ER VIA STRETCHER AWAKE WITH NO DISTRESS NOTED. BREATHING EVEN AND UNLABORED. NOTED WITH PRODUCTIVE COUGH. ALERT AND RESPONSIVE WITH CONFUSION. BED BATH AND SKIN ASSESSMENT DONE. NOTED WITH SUSPICION OF SCABIES. INFORMED CHARGE NURSE AND WITH INSTRUCTION TO TRANSFER PATIENT TO [facility] FOR ISOLATION. TRANSFERRED PATIENT AND ENDORSED TO [place].
--- NOTE | 2017-04-26 04:12 | NUR ---
MS/RN NOTE: RECEIVED TRANSFER WITH BED FROM [facility]. RECEIVED REPORT FROM [facility] RN ASSIGNED AT THE TIME.
[2017-04-26 05:02] VITALS: BP 120/67
[2017-04-26 05:18] VITALS: BP 113/76
[2017-04-26] MEDS ORDERED: BISACODYL SUPP (10 MG) 10 MG/SUPP.RECT SUPP.RECT RC PRN (05:30)
--- NOTE | 2017-04-26 05:42 | NUR ---
MS/RN NOTE: PATIENT RESTING, NO S/S OF ANY DISTRESS, 02 AT 2L VIA NC. FOR WOUND CONSULT TODAY. CONTACT ISOLATION FOR POSSIBLE SCABIES.
--- NOTE | 2017-04-26 06:15 | NUR ---
MS/RN NOTE: PAGED AND SPOKE TO DR. JOEL, RE: MED. RECONCILIATION.
--- NOTE | 2017-04-26 07:00 | NUR ---
RN INITIAL NOTES REPORT RECEIVED AT THE BEDSIDE. PATIENT IS SLEEPING. NO SOB OR DISTRESS NOTED AT THIS TIME. PATIENT DOES NOT APPEAR TO BE IN PAIN, NO FACIAL GRIMACE NOTED. CALLED [facility] [employer] TO OBTAIN AN ISOLATION CART PT IS POSSIBLE SCABIES. BED IN A LOW POSITION, CALL LIGHT WITHIN PATIENT REACH. WILL CONTINUE TO MONITOR.
[2017-04-26 08:00] VITALS: BP 98/57
[2017-04-26] MEDS: LORAZEPAM INJ 2 MG/ML VIAL IV PRN ×2 (10:27→17:23)
[2017-04-26] MEDS: IV D5/ 0.9% NACL 1,000 ML IV PRN (10:27)
[2017-04-26 16:00] VITALS: BP 131/80
[2017-04-26] MEDS: VALPROATE 500 MG in IV D5W 100 ML IV SCH (16:20)
--- NOTE | 2017-04-26 18:40 | NUR ---
RN CLOSING NOTES NO SIGNIFICANT CHANGES IN PATIENT CONDITION THROUGHOUT THE SHIFT. PT IS MORE ALERT NOW THAN HE WAS THROUGHOUT MOST OF THE SHIFT. NO SOB OR DISTRESS NOTED AT THIS TIME. PATIENT DOES NOT APPEAR TO BE IN PAIN. BED IN A LOW POSITION, CALL LIGHT WITHIN PATIENT REACH. WILL ENDORSE FOR DAGO.
--- NOTE | 2017-04-26 19:20 | NUR ---
MS RN OPENING NOTES: RECEIVED PT AND IS MORE AWAKE THAN LETHARGIC. PT IS A/OX1. PT IS ON 2LPM VIA NC AND IS TOLERATING WELL. NO SOB OR S/S OF DISTRESS NOTED AT THIS TIME. PT HAS IV ON R HAND #18G AND IS BEING INFUSED WITH D5/0.9% NACL AT 75ML/HR. CALL LIGHT WITHIN PT'S REACH. BED KEPT IN LOW, LOCKED POSITION, AND SIDE RAILS X 3 UP. BED ALARM ACTIVATED. WILL CONTINUE TO MONITOR PT.
[2017-04-26 20:00] VITALS: BP 121/75
[2017-04-26] MEDS: FAMOTIDINE/PF INJ 20 MG/2 ML VIAL IV SCH (20:06)
[2017-04-27] MEDS: LORAZEPAM INJ 2 MG/ML VIAL IV PRN ×3 (00:47→23:41)
[2017-04-27] MEDS: IV D5/ 0.9% NACL 1,000 ML IV PRN ×2 (00:47→15:03)
--- NOTE | 2017-04-27 00:52 | NUR ---
MS RN NOTES: PT SHOWING SIGNS OF AGITATION. PT KEEPS YELLING OUT. PT WAS ADMINISTERED ATIVAN VIA IV. WILL CONTINUE TO MONITOR PT.
--- NOTE | 2017-04-27 06:40 | NUR ---
MS RN CLOSING NOTES: ALL NEEDS WERE ATTENDED AND ANTICIPATED FOR. PT IS ASLEEP AT THIS TIME. PT HAS GARBLED SPEECH. PT IS A/OX1. PT IS ON 2LPM VIA NC AND IS TOLERATING WELL. NO SOB OR S/S OF DISTRESS NOTED AT THIS TIME. PT HAS IV ON R HAND #18G AND IS BEING INFUSED WITH D5/0.9% NACL AT 75ML/HR. PT KEPT CLEAN, DRY, AND COMFORTABLE. CALL LIGHT WITHIN PT'S REACH. BED KEPT IN LOW, LOCKED POSITION, AND SIDE RAILS X 3 UP. BED ALARM ACTIVATED. WILL ENDORSE TO AM NURSE FOR DAGO.
[2017-04-27 08:00] VITALS: BP 129/76
--- NOTE | 2017-04-27 08:16 | NUR ---
RN NOTES RECEIVED PT. PT IS STABLE AND SLEEPING IN BED. NO S/S OF RESPIRATORY DISTRESS OR SOB, PT ON 2L O2 VIA NC, O2 SAT WNL. PT DOES NOT APPEAR TO BE IN PAIN AT THIS TIME. IV ACCESS LOCATED ON RIGHT HAND 18G RUNNING D5NS AT 75 ML/HR. SAFETY MEASURES IN PLACE, CALL LIGHT WITHIN REACH. WILL CONTINUE TO MONITOR..
[2017-04-27] MEDS: VALPROATE 500 MG in IV D5W 100 ML IV SCH ×2 (09:38→18:57)
[2017-04-27] MEDS: FAMOTIDINE/PF INJ 20 MG/2 ML VIAL IV SCH ×2 (09:38→20:25)
[2017-04-27] MEDS ORDERED: LIDOCAINE 2%-EPI 1:100,000 30 ML VIAL TP ONE (17:00)
--- NOTE | 2017-04-27 18:31 | NUR ---
RN CLOSING NOTES PT IS IN BED RESTING. A/OX1, PT IS CONFUSED. NO S/S OF DISTRESS OR SOB. PT DOES NOT APPEAR TO BE IN PAIN. DR. JARA TO INSERT PEG TOMORROW 04/28/17 AT 0800. REQUESTS THAT ATIVAN BE GIVEN 30 MINS PRIOR TO PEG INSERTION. SAFETY MEASURES IN PLACE, CALL LIGHT WITHIN REACH. WILL ENDORSE TO GUARD SUPERVISOR FOR DAGO.
--- NOTE | 2017-04-27 19:50 | NUR ---
MS DRISS OPENING NOTES: RECEIVED PT IN BED IN SEMI-VIZCAINO'S POSITION. PT IS AWAKE WITH EYES OPEN AND GARBLES WORD. PT IS ON 2LPM VIA NC AND IS TOLERATING WELL. PT STILL A/OX1 AND IS CONFUSED. NO SOB NOTED. NO S/S OF DISTRESS NOTED AT THIS TIME. CONSENT FOR PEG PLACEMENT TO BE OBTAINED. DR. JARA WILL BE DOING THE PROCEDURE AT 0800 IN THE MORNING. CALL LIGHT WITHIN PT'S REACH. BED KEPT IN LOW, LOCKED POSITION, AND SIDE RAILS X 2UP. WILL CONTINUE TO MONITOR PT. Addendum: 04/27/17 at 1955 by EMPERATRIZ SEPULVEDA RN PT GETTING IV DEPAKOTE. WAS ENDORSED THAT PHARMACY BROUGHT IV LATE SO IT WAS A LATE ADMIN.
[2017-04-27 20:00] VITALS: BP 138/79
--- NOTE | 2017-04-27 20:08 | NUR ---
MS RN NOTES: SPOKE WITH MS. TEE BARRIENTOS [phone] AND GOT VERBAL CONSENT FOR G TUBE PLACEMENT BY DR. JARA TOMORROW AT 0800 AM. ANOTHER RN, TO WITNESS, WAS KELBY MAHARAJ. CONSENT SIGNED AND PLACED IN CHART.
--- NOTE | 2017-04-27 23:42 | NUR ---
MS RN NOTES: PT SHOWING SIGNS OF AGITATION. PT IS SCREAMING OUT AND YELLING WHEN NO ONE IS IN THE ROOM. WILL ADMINISTER ATIVAN VIA IV. WILL CONTINUE TO MONITOR PT.
[2017-04-28] MEDS: IV D5/ 0.9% NACL 1,000 ML IV PRN ×2 (04:47→23:19)
[2017-04-28 06:00] VITALS: BP 111/65
--- NOTE | 2017-04-28 07:10 | NUR ---
RN NOTES PT IS RESTING IN BED COMFORTABLY. PT ON 2L O2, RESPIRATIONS ARE EVEN AND UNLABORED. IV ON R HAND INTACT AND RUNNING D5NS @75ML/HR. ATIVAN WAS GIVEN PRIOR TO PEG PLACEMENT PROCEDURE BY JOSE NAQVI. SAFETY MEASURES ARE IN PLACE, CALL LIGHT IS IN REACH. WILL CONTINUE TO MONITOR.
--- NOTE | 2017-04-28 07:28 | NUR ---
MS RN CLOSING NOTES: ALL NEEDS WERE ATTENDED AND ANTICIPATED FOR. PT IN BED , IN SEMI-VIZCAINO'S POSITION. PT IS ASLEEP. PT IS ON 2LPM VIA NC AND IS TOLERATING WELL. PT STILL A/OX1 AND IS CONFUSED. NO SOB NOTED. NO S/S OF DISTRESS NOTED AT THIS TIME. CONSENT FOR PEG PLACEMENT IN CHART. CALL LIGHT WITHIN PT'S REACH. BED KEPT IN LOW, LOCKED POSITION, AND SIDE RAILS X 2UP. WILL ADMINISTER ATIVAN IV [address] JARA. ENDORSED TO AM NURSE FOR DAGO.
[2017-04-28] MEDS: LORAZEPAM INJ 2 MG/ML VIAL IV PRN ×2 (07:30→17:06)
[2017-04-28 07:32] LABS: BASOPHILS # (AUTO) 0.1 /CMM (0.0-0.2); BASOPHILS % (AUTO) 0.7 % (0.0-2.0); EOSINOPHILS # (AUTO) 0.2 /CMM (0.0-0.7); HEMATOCRIT 29 % (39-51); HEMOGLOBIN 9.6 g/dL (13.5-17.5); LYMPHOCYTES # (AUTO) 1.6 /CMM (0.8-4.8); LYMPHOCYTES % (AUTO) 20.5 % (20.0-44.0); MEAN CORPUSCULAR HEMOGLOBIN 31 PG (26.0-33.0); MEAN CORPUSCULAR HGB CONC 33 g/dl (31.0-36.0); MEAN CORPUSCULAR VOLUME 95 fL (80-96); MONOCYTES # (AUTO) 0.9 /CMM (0.1-1.30); MONOCYTES % (AUTO) 11.1 % (2.0-12.0); NEUTROPHILS # (AUTO) 5.3 /CMM (1.8-8.9); NEUTROPHILS % (AUTO) 65.7 % (43.0-81.0); PLATELET COUNT (AUTO) 214 /CMM (150-450); RDW COEFFICIENT OF VARIATION 20.7 (11.5-15.0); RED BLOOD CELL COUNT(AUTO) 3.08 MIL/uL (4.5-6.0)
[2017-04-28 08:00] VITALS: BP 127/71
[2017-04-28 08:03] LABS: CALCIUM, SERUM 8.2 mg/dL (8.5-10.1); CARBON DIOXIDE 28 mmol/L (21-32); CHLORIDE 109 mmol/L (98-107); CREATININE 0.9 mg/dL (0.6-1.3); GLUCOSE 101 mg/dL (74-106); PHOSPHORUS 2.7 mg/dL (2.5-4.9); POTASSIUM 4.2 mmol/L (3.5-5.1); SODIUM SERUM 143 mmol/L (136-145); UREA NITROGEN, BLOOD 17 mg/dL (7-18)
[2017-04-28] MEDS: FAMOTIDINE/PF INJ 20 MG/2 ML VIAL IV SCH ×2 (09:02→21:12)
[2017-04-28] MEDS: VALPROATE 500 MG in IV D5W 100 ML IV SCH ×2 (09:02→16:55)
[2017-04-28 10:53] LABS: IRON, SERUM 62 ug/dl (50-175); TOTAL IRON BINDING CAPACITY 168 ug/dl (250-450)
--- NOTE | 2017-04-28 11:22 | NUR ---
WOUND CARE CONSULT: PT PRESENTS WITH BODY RASH ESPECIALLY TO BACK, PRESENT ON ADMISSION. DEFER TO MD FOR RASH. PT IS INCONTINENT. SKIN PROTECTION RECOMMENDATIONS DISCUSSED WITH NURSING STAFF. CURRENT ELLE SCORE IS 15. ALL SKIN PROTECTION MEASURES IN PLACE. WILL SEE PRN. IN AGREEMENT WITH PLAN OF CARE. Addendum: 04/28/17 at 1123 by ERNIE SAMUEL WNDNU Amended: Links added.
[2017-04-28] MEDS ORDERED: Z GUARD REMEDY 2 OZ OINT TP PRN (11:30)
[2017-04-28] MEDS: Z GUARD REMEDY 2 OZ OINT TP SCH (12:28)
[2017-04-28 16:00] VITALS: BP 146/73
--- NOTE | 2017-04-28 18:39 | NUR ---
RN NOTES PT IS LAYING DOWN IN BED, RESTING. PT ON 2L O2 VIA NASAL CANNULA, RESPIRATIONS ARE EVEN AND UNLABORED. IV ON R HAND INTACT AND RUNNING NS @ 75ML/HR. ATIVAN GIVEN AT 1710 DUE TO PT AGITATION. PT WAS ABLE TO CALM DOWN. PT NPO PRE OP FOR PEG PLACEMENT IN THE AM WITH DR. JARA. SAFETY MEASURES ARE IN PLACE, CALL LIGHT IS IN REACH. WILL ENDORSE TO OPERATIONS LIEUTENANT RN FOR CONTINUITY OF CARE.
[2017-04-28 20:00] VITALS: BP 130/71
--- NOTE | 2017-04-28 20:00 | NUR ---
RN NOTES VSS 98.2-68-18 BP 130/71. SATS 93% ON O2 @ 2 LITERS NC. PATIENT IS CONFUSED AND IS POSSIBLY AO X 1 AND SEEMS TO RESPOND TO TOUCH TO INITIATE RESPONSES. PATIENT IS MAINTAINED IN A CONTACT ISOLATION PATIENT IS SUSPECTED TO HAVE SCABIES. WOUND CARE NURSE SAW PATIENT EARLIER TODAY. SKIN REMAINS INTACT AND THERE DO NOT APPEAR TO SCRATCHING TRACKS ON THE SKIN BUT PATIENT IS SEEN SCRATCHING OCCASIONALLY. THERE IS A GENERALIZED SKIN RASH WITH SENSITIVITY TO SCROTUM AND SACRAL AREAS. NO DRAINAGE. PATIENT IS VERY STIFF WITH VERY LIMITED ROM; SO, HE IS CONFINED TO BED. PATIENT ACTUALLY ADMITTED BECAUSE HE REMOVED HIS G TUBE IN THE ASSISTED AND HE IS HERE FOR A REINSERTION OF THAT G TUBE. PT HAS AN IV #18 TO HIS RIGHT HAND FOR D5N.S. @ 75 CC/HOUR WITH NO SIGNS OF INFILTRATION. PATIENT DOES NOT APPEAR TO BE PULLING AT HIS IV DESPITE HIS MENTAL CONFUSION. PATIENT APPEARS TO BE INCONTINENT OF BOWEL AND BLADDER HE IS DIAPERED. ABDOMEN SOFT WITH AUDIBLE BOWEL SOUNDS. NO JVD OR OTHER EDEMAS WITH ALL PERIPHERAL PULSES PALPABLE. PATIENT SHOWS NO SIGNS OF ACUTE CARDIAC/RESPIRATORY DISTRESS OR SUPPRESSION.
[2017-04-29 03:58] LABS: BASOPHILS # (AUTO) 0.1 /CMM (0.0-0.2); BASOPHILS % (AUTO) 1.3 % (0.0-2.0); EOSINOPHILS # (AUTO) 0.1 /CMM (0.0-0.7); EOSINOPHILS % (AUTO) 1.8 % (0.0-6.0); HEMATOCRIT 29 % (39-51); HEMOGLOBIN 9.4 g/dL (13.5-17.5); LYMPHOCYTES # (AUTO) 1.7 /CMM (0.8-4.8); LYMPHOCYTES % (AUTO) 23.1 % (20.0-44.0); MEAN CORPUSCULAR HEMOGLOBIN 31 PG (26.0-33.0); MEAN CORPUSCULAR HGB CONC 33 g/dl (31.0-36.0); MEAN CORPUSCULAR VOLUME 95 fL (80-96); MONOCYTES # (AUTO) 0.7 /CMM (0.1-1.30); NEUTROPHILS # (AUTO) 4.8 /CMM (1.8-8.9); NEUTROPHILS % (AUTO) 64.8 % (43.0-81.0); PLATELET COUNT (AUTO) 184 /CMM (150-450); RDW COEFFICIENT OF VARIATION 20.5 (11.5-15.0); RED BLOOD CELL COUNT(AUTO) 2.99 MIL/uL (4.5-6.0); WHITE BLOOD COUNT (AUTO) 7.4 K/uL (4.3-11.0)
[2017-04-29 04:00] VITALS: BP 135/72
[2017-04-29 04:11] LABS: INR 1.06 (0.87-1.13)
[2017-04-29 04:14] LABS: ALANINE AMINOTRANSFERASE 24 U/L (12-78); ALBUMIN 2.6 g/dL (3.4-5.0); ALKALINE PHOSPHATASE 70 U/L (46-116); ASPARTATE AMINOTRANSFERASE 13 U/L (15-37); BILIRUBIN,TOTAL 0.5 mg/dL (0.2-1.0); CALCIUM, SERUM 8.1 mg/dL (8.5-10.1); CARBON DIOXIDE 26 mmol/L (21-32); CHLORIDE 109 mmol/L (98-107); CREATININE 0.8 mg/dL (0.6-1.3); GLUCOSE 102 mg/dL (74-106); MAGNESIUM 1.8 mg/dL (1.8-2.4); PHOSPHORUS 2.2 mg/dL (2.5-4.9); POTASSIUM 3.9 mmol/L (3.5-5.1); SODIUM SERUM 143 mmol/L (136-145); TOTAL PROTEIN, SERUM 6.5 g/dL (6.4-8.2); UREA NITROGEN, BLOOD 13 mg/dL (7-18)
--- NOTE | 2017-04-29 06:00 | NUR ---
RN CORRECTION NOTE PLEASE NOTE THAT PATIENT WAS NPO AND DID NOT RECEIVED 320 CC ORALLY INDICATED ON THE INTAKE AND OUTPUT DATA.
--- NOTE | 2017-04-29 06:45 | NUR ---
RN NOTE VSS @ 0400=96.7-66-20 BP 135/72. SATS 95% ON O2 @ 2 LITERS NC. NURSE SUCTIONED PATIENT X 3 FOR A THICK YELLOW PHLEGM AND PATIENT TOLERATED THIS WELL. NURSE BATHED PATIENT AND PLACED GENEROUS AMOUNTS OF BARRIER CREAM TO BUTTOCKS AND COCCYX. NOTED A RAISED, DRY RASH THROUGHOUT BACK (MORESO RAISED) AND TO LEGS THAT WAS NOT RAISED. PATIENT REMAINS CONFUSED. NURSE GAVE REPORT TO PREOP STAFF ALONG WITH PAPERWORK FOR SURGERY. ANESTHESIOLOGIST SEEING PATIENT AT BEDSIDE. PATIENT TO SURGERY IN STABLE CONDITION FOR REPLACEMENT OF G MAXIMILIAN.
[2017-04-29] MEDS ORDERED: CLINDAMYCIN 900 MG/6 ML VIAL ONE (07:14)
[2017-04-29 08:00] VITALS: BP 138/80
--- NOTE | 2017-04-29 08:00 | NUR ---
RN MS NOTES PATIENT CAME BACK ON THE FLOOR FROM OR DEPARTMENT, A/OX1, CONFUSED BUT CALM AND COOPERATIVE, NEW PEG PLACED. RECEIVED ORDERS FROM DR. JARA. ORDER NOTED AND CARRIED OUT. NEEDS ATTENDED AND MET, CALL LIGHT WITHIN REACH, WILL CONTINUE TO MONITOR.
[2017-04-29] MEDS: VALPROATE 500 MG in IV D5W 100 ML IV SCH (10:22)
[2017-04-29] MEDS: Z GUARD REMEDY 2 OZ OINT TP SCH (10:23)
[2017-04-29] MEDS: FAMOTIDINE/PF INJ 20 MG/2 ML VIAL IV SCH (10:23)
[2017-04-29] MEDS ORDERED: FIBERSOURCE HN 1,000 ML BOTTLE GT SCH (11:00)
--- NOTE | 2017-04-29 11:00 | NUR ---
COMPUTERIZED MILL MILL RECORDER NOTE PATIENT ALERT AND ORIENTED X1, GT FEEDING STARTED, FIBERSOURCE AT 75ML/HR AND PATIENT TOLERATED WELL, NO RESIDUAL NOTED, PLACEMENT CONFIRMED AND VERIFIED, PATIENT SEEN BY DR. ALMONTE AND RECEIVED ORDER FOR DISCHARGE.
--- NOTE | 2017-04-29 12:30 | NUR ---
EXECUTIVE SOUS CHEF NOTE PATIENT MADE AWARE OF DISCHARGE ORDER, SKIN ASSESSMENT COMPLETED AND PHOTOS TAKEN, STILL NOTED WITH GENERALIZED BODY RASHES, GTF ONGOING AND TOLERATING WELL, NO RESIDUAL AT THIS TIME, ALL DUE MEDS GIVEN ORDERED, PIV REMOVED AND TAPED WITH GAUZE. REPORT GIVEN TO NATALIA NAQVI AT [facility], PER RN, PATIENT WAS TREATED WITH SCABIES A FEW MONTHS AGO AT THE FACILITY, AND IS AWARE OF THE RASHES. NO BELONGINGS BROUGHT TO HOSPITAL. PATIENT LEFT VIA AMBULANCE ACCOMPANIED BY 2 FURNITURE DIPPER, IN NO DISTRESS.
[2017-04-29] MEDS ORDERED: Sodium Phosphate 15 MMOL in IV D5W 250 ML IV ONE (13:30)
--- NOTE | 2017-04-29 16:14 | NUR ---
RN NOTES SPOKE WITH DSD CONCERNED ABOUT PATIENT'S CONTACT PRECAUTION HERE AT THE HOSPITAL DUE TO RASHES, AND POSSIBLE SCABIES. PER CHARGE NURSE, PATIENT WAS ADMITTED WITH RASHES, WAS ONLY PLACED ON PRECAUTION DUE TO GENERALIZED RASHES, BUT WAS NOT CONFIRMED IF IT WAS SCABIES OR NOT. ATTENDING MD AWARE OF SKIN RASHES.
== END 2017-04-29 12:30 | DRG 393 ==
LOC: ER 00:37 → MEDSG1 02:58 → MED 03:46
PROVIDERS: ADMIT Internal Medicine; ATTEND Internal Medicine
PROC: 0DH63UZ Insertion of Feeding Device into Stomach, Percutaneous Approach (ICD-10-PCS; principal; 2017-04-29 07:25)
DX: K94.23 Gastrostomy malfunction (principal); N17.0 Acute kidney failure with tubular necrosis; I48.91 Unspecified atrial fibrillation; F03.90 Unspecified dementia, unspecified severity, without behavioral disturbance, psychotic disturbance, mood disturbance, and anxiety; E86.0 Dehydration; I12.9 Hypertensive chronic kidney disease with stage 1 through stage 4 chronic kidney disease, or unspecified chronic kidney disease; F29 Unspecified psychosis not due to a substance or known physiological condition; K21.9 Gastro-esophageal reflux disease without esophagitis; Y83.3 Surgical operation with formation of external stoma as the cause of abnormal reaction of the patient, or of later complication, without mention of misadventure at the time of the procedure; Y73.8 Miscellaneous gastroenterology and urology devices associated with adverse incidents, not elsewhere classified; N18.9 Chronic kidney disease, unspecified; N40.0 Benign prostatic hyperplasia without lower urinary tract symptoms; Y92.129 Unspecified place in nursing home as the place of occurrence of the external cause; Z79.899 Other long term (current) drug therapy
CPT/HCPCS: 36415; 43246; 80048-TC; 80053-TC; 82272-TC; 83540-TC; 83735-TC; 84100-TC; 85025-TC; 85610-TC; 85730-TC; 87081-TC; A4606; A9563; J2060; J2704; J3490; J7042; J7060; Z7610